=== PATIENT | male | born 1995 | race Caucasian/White ===

== ENCOUNTER 2018-06-13 14:53 | Emergency (ER) | payer SELFPAY ==
[~2018-06-13] VITALS: Wt 75.3 kg
[2018-06-13 14:55] VITALS: BP 129/65; PULSE 98; RESP 18
== END 2018-06-13 16:29 | disposition left against medical advice (07) ==
LOC: FTE 14:53
DX: Z53.21 Procedure and treatment not carried out due to patient leaving prior to being seen by health care provider (principal)